=== PATIENT | female | born 1965 | race Two or more races ===

== ENCOUNTER 2018-07-02 00:23 | Inpatient (IN) | payer MEDICAID, OTHER ==
[~2018-07-02] VITALS: Ht 157.5 cm; Wt 103.0 kg
[2018-07-02 01:42] LABS: Basophils # (auto) 0.1 uL; Basophils % (auto) 0.9 % (0.0-2.0); Eosinophils # (auto) 0.2 uL; Hemoglobin 11.6 g/dL (12.2-16.2); Monocytes # (auto) 0.8 uL; Neutrophils # (auto) 6.3 uL
[2018-07-02 01:44] LABS: Eosinophils % (auto) 1.5 % (0.0-7.0); Hematocrit 36.4 % (36.0-46.0); Lymphocytes % (auto) 28.8 % (10.0-50.0); Mean Corpuscular Hemoglobin 23.7 pg (28.0-32.0); Mean Corpuscular Hgb Conc. 31.8 g/dL (32.0-36.0); Mean Corpuscular Volume 74.5 fL (80.0-100.0); Monocytes % (auto) 8.2 % (0.0-12.0); Neutrophils % (auto) 60.6 % (37.0-80.0); Platelet Count (auto) 328 10^3/uL (140-450); Red Blood Cells 4.89 10^6/uL (4.0-5.20); White Blood Cell 10.3 10^3/uL (4.4-10.8)
[2018-07-02 01:48] LABS: Red Cell Distribution Width 21.5 % (11.8-14.3)
[2018-07-02 02:02] LABS: Alanine Aminotransferase 74 U/L (13-56); Albumin 3.6 g/dL (3.4-5.0); Amylase 65 U/L (25-115); Anion Gap 13 (5-15); Aspartate Aminotransferase 31 U/L (15-37); BUN/Creatinine Ratio 20.8; Blood Urea Nitrogen 21 mg/dL (7-18); Carbon Dioxide 21 mmol/L (21-32); Chloride 104 mmol/L (98-107); GFR African American 73 mL/min; GFR Non-African American 61 mL/min; Glucose 190 mg/dL (74-106); Lipase 199 U/L (73-393); Potassium 3.5 mmol/L (3.5-5.1); Sodium 138 mmol/L (136-145)
[2018-07-02 02:07] LABS: Alkaline Phosphatase 68 U/L (45-117); Bilirubin, Total 0.2 mg/dL (0.2-1.0); Total Protein 7.5 g/dL (6.4-8.2)
[2018-07-02] MEDS ORDERED: MORPHINE SULFATE 4 MG/ML SYR/VIAL IV ONE (04:45)
[2018-07-02] MEDS ORDERED: ONDANSETRON HCL 4 MG/2 ML VIAL IV ONE (04:45)
[2018-07-02 05:15] LABS: Urine Bacteria NONE SEEN /hpf (None Seen); Urine Blood 2+ /uL (Negative); Urine Specific Gravity 1.023 (1.001-1.035); Urine WBC 2 /hpf (0 - 5)
[2018-07-02] MEDS ORDERED: SODIUM CHLORIDE 0.9% 500 ML IVB ONE (07:05)
[2018-07-02] MEDS ORDERED: SODIUM CHLORIDE 0.9% 1,000 ML IV ONE (07:05)
[2018-07-02] MEDS ORDERED: PROMETHAZINE HCL 25 MG/ML 1ML IV PRN (07:15)
[2018-07-02] MEDS ORDERED: KETOROLAC TROMETH 30 MG/ML 1ML VIAL IV ONE (07:15)
[2018-07-02] MEDS ORDERED: cefTRIAXone 1GM/50ML D5W 50 ML IV ONE (13:00)
[2018-07-02] MEDS ORDERED: DEXTROSE (50%) 50ML SYRG IV PRN (13:00)
[2018-07-02] MEDS ORDERED: cloNIDine HCL 0.1 MG TAB PO PRN (13:15)
[2018-07-02] MEDS ORDERED: MORPHINE SULFATE 4 MG/ML SYR/VIAL IV PRN (13:15)
[2018-07-02] MEDS: SODIUM CHLORIDE 0.9% 1,000 ML IV SCH ×2 (13:15→22:53)
[2018-07-02] MEDS ORDERED: DOCUSATE SOD 100 MG CAP PO PRN (13:15)
[2018-07-02] MEDS ORDERED: NITROGLYCERIN 0.4 MG SL TAB SL PRN (13:15)
[2018-07-02] MEDS ORDERED: TEMAZEPAM 15 MG CAP PO PRN (13:15)
--- NOTE | 2018-07-02 15:44 | NUR ---
Telemetry admit from [facility] admitted to Telemetry unit after SBAR received. Patient oriented to Neda Sung, primary RN, unit, room, bed, and unit policies regarding patient care and visiting hours. Patient now on continuous telemetry monitoring, tele box # 8 and telemetry reading on arrival to unit is NSR . Patient encouraged to call if they need something. All questions and concerns addressed, patient verbalized understanding. Family at bedside.
[2018-07-02 17:00] VITALS: BP 156/85
[2018-07-02] MEDS: InsuLIN REG 1unit/0.01ml Soln (100units/ml) SC SCH ×2 (17:00→22:00)
[2018-07-02] MEDS: ACCU-CHEK COMFORT CURVE STRIP VI SCH ×2 (17:22→23:06)
[2018-07-02] MEDS: HYDROcodone-ACET 5/325MG TAB PO PRN (17:37)
[2018-07-02] MEDS ORDERED: MANNITOL 20% SOLN 100 gm/500ml 62.5 ML IV ONE (17:45)
--- NOTE | 2018-07-02 19:00 | NUR ---
open shift note Patient alert and oriented x4, 0/10 of pain. 2L nasal cannula, does not use oxygen at baseline. Patient can ambulate with stand by assistance for safety. Bed is locked in lowest position, with side rails up x2 and call light within reach. POC discussed and questions answered. Will continue to round Q1hr and PRN.
--- NOTE | 2018-07-02 19:08 | NUR ---
End of Shift Note Patient sitting up in bed, no s/s of distress/ SOB or pain stated or noted. Bed at lowest position and call light within reach. Care endorsed to NOC RN.
[2018-07-02 22:23] VITALS: BP 148/81
[2018-07-02] MEDS: ACETAMINOPHEN 325 MG TAB PO PRN (23:04)
[2018-07-03] VITALS (7 sets, daily range): BP systolic 109–138; BP diastolic 66–78
[2018-07-03] MEDS: HYDROcodone-ACET 5/325MG TAB PO PRN ×2 (01:53→14:43)
[2018-07-03] MEDS: SODIUM CHLORIDE 0.9% 1,000 ML IV SCH ×3 (05:02→20:03)
[2018-07-03 06:35] LABS: Basophils # (auto) 0.1 uL; Eosinophils # (auto) 0.1 uL; Hemoglobin 11.3 g/dL (12.2-16.2); Lymphocytes # (auto) 1.8 uL; Monocytes # (auto) 0.4 uL; Nucleated Red Blood Cells % 0.1 %
[2018-07-03 06:38] LABS: Basophils % (auto) 1.1 % (0.0-2.0); Eosinophils % (auto) 1.9 % (0.0-7.0); Mean Corpuscular Hemoglobin 24.3 pg (28.0-32.0); Mean Corpuscular Hgb Conc. 32.2 g/dL (32.0-36.0); Monocytes % (auto) 6.2 % (0.0-12.0); Neutrophils # (auto) 4.1 uL; Neutrophils % (auto) 62.8 % (37.0-80.0); Platelet Count (auto) 302 10^3/uL (140-450); Red Blood Cells 4.63 10^6/uL (4.0-5.20); White Blood Cell 6.5 10^3/uL (4.4-10.8)
[2018-07-03 06:49] LABS: Mean Corpuscular Volume 75.5 fL (80.0-100.0)
[2018-07-03 06:53] LABS: INR 0.93 (0.9-1.15)
[2018-07-03] MEDS: ACCU-CHEK COMFORT CURVE STRIP VI SCH ×4 (06:54→22:19)
[2018-07-03] MEDS: InsuLIN REG 1unit/0.01ml Soln (100units/ml) SC SCH ×4 (06:55→22:18)
[2018-07-03 06:57] LABS: Potassium 3.4 mmol/L (3.5-5.1)
[2018-07-03 07:05] LABS: Albumin 3.2 g/dL (3.4-5.0); BUN/Creatinine Ratio 16.7; Bilirubin, Total 0.4 mg/dL (0.2-1.0); Calcium 8.2 mg/dL (8.5-10.1); Total Protein 6.8 g/dL (6.4-8.2)
--- NOTE | 2018-07-03 07:42 | NUR ---
Opening Shift Note Assumed care of patient, patient comfortably resting in bed, asleep./Respirations even and unlabored. No S/S of distress/SOB or pain. Bed at lowest position and call light within reach. Will continue to monitor for changes Q1hr and PRN.
[2018-07-03] MEDS ORDERED: METF-370 PO (08:06)
[2018-07-03] MEDS: cefTRIAXone 1GM/50ML D5W 50 ML IV SCH (09:00)
[2018-07-03] MEDS: MULTIPLE VITAMIN TAB PO SCH (10:28)
[2018-07-03] MEDS: ONDANSETRON HCL 4 MG/2 ML VIAL IV PRN ×2 (10:55→20:26)
[2018-07-03] MEDS ORDERED: LATA0.0015 EACHEYE (14:27)
[2018-07-03] MEDS ORDERED: POTASSIUM CHL 20 Meq TABLET PO ONE (17:00)
--- NOTE | 2018-07-03 19:10 | NUR ---
End of shift note Patient resting comfortably, no s/s of distress noted, no c/o pain. Care endorsed to NOC RN.
--- NOTE | 2018-07-03 19:15 | NUR ---
Open shift note Patient is alert and oriented x4, on room air, 20 gauge in left hand is intact and patent. Patient requested a bedside commode. Patient states 5/10 of pain at this time. Family is at bedside, POC discussed and questions answered. Bed is locked in lowest position with side rails up x2 for safety. Call light is within reach. Will continue to round Q1hr and PRN.
[2018-07-03] MEDS: MORPHINE SULFATE 4 MG/ML SYR/VIAL IV PRN (20:25)
[2018-07-04 05:06] VITALS: BP 120/74
[2018-07-04 06:14] LABS: Eosinophils # (auto) 0.1 uL; Monocytes # (auto) 0.5 uL; Nucleated Red Blood Cells % 0.1 %; Platelet Count (auto) 274 10^3/uL (140-450); White Blood Cell 6.5 10^3/uL (4.4-10.8)
[2018-07-04 06:17] LABS: Basophils # (auto) 0 uL; Basophils % (auto) 0.8 % (0.0-2.0); Eosinophils % (auto) 2.3 % (0.0-7.0); Hematocrit 34.6 % (36.0-46.0); Lymphocytes # (auto) 2.2 uL; Lymphocytes % (auto) 33.4 % (10.0-50.0); Mean Corpuscular Hemoglobin 24.3 pg (28.0-32.0); Mean Corpuscular Hgb Conc. 31.8 g/dL (32.0-36.0); Mean Corpuscular Volume 76.5 fL (80.0-100.0); Monocytes % (auto) 7.7 % (0.0-12.0); Neutrophils # (auto) 3.6 uL; Neutrophils % (auto) 55.8 % (37.0-80.0); Red Blood Cells 4.52 10^6/uL (4.0-5.20)
[2018-07-04 06:25] LABS: Red Cell Distribution Width 21.8 % (11.8-14.3)
[2018-07-04] MEDS: ACCU-CHEK COMFORT CURVE STRIP VI SCH ×2 (06:25→11:38)
[2018-07-04] MEDS: InsuLIN REG 1unit/0.01ml Soln (100units/ml) SC SCH ×2 (06:25→11:39)
[2018-07-04] MEDS: SODIUM CHLORIDE 0.9% 1,000 ML IV SCH ×2 (06:25→15:06)
[2018-07-04] MEDS: MORPHINE SULFATE 4 MG/ML SYR/VIAL IV PRN (06:37)
[2018-07-04 06:47] LABS: Calcium 8.3 mg/dL (8.5-10.1); Magnesium 2.2 mg/dL (1.6-2.6); Potassium 3.9 mmol/L (3.5-5.1)
[2018-07-04 06:58] LABS: BUN/Creatinine Ratio 14.3; Bilirubin, Total 0.2 mg/dL (0.2-1.0); Total Protein 6.5 g/dL (6.4-8.2)
[2018-07-04 09:00] VITALS: BP 111/49
--- NOTE | 2018-07-04 09:00 | NUR ---
SPOKE WITH MD AWAN PER MD, PATIENT SHOULD BE DISCHARGED ON ORAL PAIN MEDICATION, NO INTERVENTION FROM UROLOGY AT THIS TIME.
[2018-07-04] MEDS: cefTRIAXone 1GM/50ML D5W 50 ML IV SCH (10:45)
[2018-07-04] MEDS: MULTIPLE VITAMIN TAB PO SCH (10:49)
[2018-07-04] MEDS: ACETAMINOPHEN 325 MG TAB PO PRN (11:38)
[2018-07-04 13:00] VITALS: BP 126/56
[2018-07-04] MEDS ORDERED: HYDR-4683 PO ×2 (16:09→16:10)
[2018-07-04] MEDS ORDERED: ACE650RS PR (16:09)
[2018-07-04 17:14] VITALS: BP 161/85
--- NOTE | 2018-07-04 18:50 | NUR ---
Discharge instructions given as ordered. Encourage to follow up with PMD as instructed. All questions and concerns addressed. Patient verbalized understanding. Medication reconciliation form completed and copy given to patient. Home medications held in Pharmacy returned to patient. IV removed with catheter intact, pressure dressing applied. Telemetry unit returned to ICU. Patient taken to vehicle via wheelchair with all personal belongings, accompanied by staff and family member. No distress noted at time of departure.
== END 2018-07-04 18:50 | disposition home or self-care (01) | DRG 463 ==
LOC: ER 00:26 → TELE 13:10 → TELE-WESTW 15:44
PROVIDERS: ADMIT Internal Medicine; ATTEND Internal Medicine
DX: N13.6 Pyonephrosis (principal); E11.21 Type 2 diabetes mellitus with diabetic nephropathy; K76.0 Fatty (change of) liver, not elsewhere classified; Z68.41 Body mass index [BMI] 40.0-44.9, adult; E61.1 Iron deficiency; E66.9 Obesity, unspecified; I12.9 Hypertensive chronic kidney disease with stage 1 through stage 4 chronic kidney disease, or unspecified chronic kidney disease; K57.30 Diverticulosis of large intestine without perforation or abscess without bleeding; K42.9 Umbilical hernia without obstruction or gangrene; N18.2 Chronic kidney disease, stage 2 (mild); E11.22 Type 2 diabetes mellitus with diabetic chronic kidney disease; Z83.3 Family history of diabetes mellitus; Z90.49 Acquired absence of other specified parts of digestive tract
CPT/HCPCS: 36415; 74018; 74176; 80053; 81001; 82150; 82962; 83036; 83540; 83690; 83735; 84443; 84484; 85025; 85610; 96361; 96374; 96375; G0378; J0696; J1815; J1885; J2405